=== PATIENT | female | born 1990 | race Caucasian/White ===

== ENCOUNTER 2024-01-01 09:22 | Emergency (ER) | payer OTHER, SELFPAY ==
[2024-01-01 09:24] VITALS: BP 141/79
--- NOTE | 2024-01-01 09:47 | ED.MUSCINJ ---
HPI-Injury
General
Chief Complaint: Musculo-Skeletal Complaint
Source: patient
Exam Limitations: none
Time Seen by Provider: 01/01/24 09:27
History of Present Illness-Injury
Initial Injury comments:
33-year-old female complaining of right ankle pain starting today. She was taking her dog for a walk and her foot stepped off the edge of the sidewalk and she twisted her ankle. She heard a loud crack and since then she has had pain and swelling
to the anterior lateral aspect of the ankle and inability to bear weight. No prior injury. No other complaints
Past History
Past History
ED Past Medical History: Psychiatric (Depression) and Other (Migraine headaches)
ED Past Surgical History: None
Social History
Tobacco: Non-smoker
Alcohol: None
Living: with family
Employment: Not employed
Phy Exam
Physical Exam
Physical Exam:
General: Well-appearing female no respiratory distress
Musculoskeletal exam: Right ankle is swollen tender over the distal fibula and inferior to the distal fibula. No deformities. The medial malleolus is nontender. She has good active dorsiflexion and plantarflexion of the foot. She is ability to
resist eversion and inversion of the
Neurologic: Good sensation right foot
Vascular: 2+ dorsalis pedis pulse right foot
Injury Course
Orders/Labs/Results
Orders:
Orders
01/01/24 09:24
Ankle, Right 3 view CR [CR Ankle - Right Min 3 Views *] Urgent
Comment:
Reason For Exam: twisted right ankle while walking the dog
01/01/24 09:46
Ortho Boot Right- Treatment ONCE
Short or tall?: Tall
MDM/Problems Addressed
Differential Diagnosis Includes:
Right ankle pain after twisting injury. Question sprain versus fracture versus dislocation versus tendon injury
I have personally visualized x-rays of the right ankle which are negative for acute bony abnormality. Suspect underlying soft tissue injury such as sprain. Patient is unable to bear weight. Will try walking boot to help. Will advise follow-up
with her
*Critical Care Note
Total Time (30-74mins, 75-104mins- exclusive of procedures): Not Applicable
ED Attending Note
-
Portions of this chart may have been created with voice recognition software.� Occasional wrong word or��sound alike� substitutions may have occurred due to the inherent limitations of voice recognition software.
Discharge Plan
Departure
Patient Disposition: Home (Routine Discharge)
Date of Disposition: 01/01/24
Time of Disposition: 09:51
Patient with high blood pressure during this ER visit?: No
Discharge Problem:
Ankle sprain
Instructions: Sprain (DC)
Prescriptions:
No Action
famotidine [Acid Controller] 20 MG tablet
20 mg PO DAILY Qty: 20 0RF
amitriptyline 50 MG tablet
50 mg PO HS
sertraline 50 MG tablet
75 mg PO HS
magnesium oxide 400 MG tablet
400 mg PO HS
Vitamin B-2
1 tab PO HS
oxycodone-acetaminophen 5 MG/325 MG tablet
1 tab PO Q4HPRN PRN (Reason: moderate to severe pain) Qty: 6 0RF
Referrals:
Kellen Helm I., DO [Active] -
Activity Restrictions/Additional Instructions:
Use boot for support. Elevate for swelling. Use ibuprofen or Tylenol for pain. Consider follow-up orthopedics if symptoms persist
Interventions
Interventions:
*Risk Screen - Suicide Last Done: 01/01/24 09:24
*Neglect/Abuse Screening Last Done: 01/01/24 09:24
Discharge Date and Time
Print Language: MALAY
[2024-01-01 10:17] VITALS: BP 135/74
== END 2024-01-01 10:19 | disposition home or self-care (01) ==
LOC: EMR 09:22
PROVIDERS: EMERGENCY PHYSICIAN Emergency Medicine
DX: S93.409A Sprain of unspecified ligament of unspecified ankle, initial encounter (principal); X50.1XXA Overexertion from prolonged static or awkward postures, initial encounter; Y93.K1 Activity, walking an animal; F32.A Depression, unspecified
CPT/HCPCS: 99283; 73610